=== PATIENT | male | born 1995 | race African-American/Black ===

== ENCOUNTER 2021-08-03 07:38 | Emergency (ER) | payer OTHER ==
[2021-08-03] MEDS ORDERED: TETANUS & DIPHTHERIA TOX,ADULT 0.5 ML VIAL ONE (08:04)
[2021-08-03] MEDS ORDERED: LIDOCAINE 1% MPF 5 ML VIAL ONE (08:27)
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
[2021-08-03 10:58] VITALS: TEMP 98.6; O2SAT 100
[2021-08-03 10:59] VITALS: BP 129/85
== END 2021-08-03 10:02 | disposition home or self-care (01) ==
LOC: ER 07:38
PROC: 0JQ10ZZ Repair Face Subcutaneous Tissue and Fascia, Open Approach (ICD-10-PCS; principal; 2021-08-03)
DX: S01.411A Laceration without foreign body of right cheek and temporomandibular area, initial encounter (principal); S02.2XXA Fracture of nasal bones, initial encounter for closed fracture; Z23 Encounter for immunization
CPT/HCPCS: 70486; 71045; 76377; 90471; 90714; 99284